=== PATIENT | male | born 1965 | race Caucasian/White ===

== ENCOUNTER 2017-07-04 19:34 | Emergency (ER) | payer MEDICARE, OTHER ==
[~2017-07-04] VITALS: Ht 175.3 cm; Wt 66.6 kg
[~2017-07-04 19:34] MED LIST: ACET325S8 PO; CARB200C2 PO; CARB200T16 PO; CEPH500C3 PO; DILA100C PO; FERRF325 PO; LEVE500 PO; LEVE750T8 PO; MACR100C PO; PROM1SUP12 PR; [UNRECOGNIZED DRUG - OTHER] PO
[2017-07-04 19:43] VITALS: BP 135/82; PULSE 94; RESP 18; TEMP 100.1; O2SAT 98
[2017-07-04] MEDS ORDERED: SODIUM CHLOR 0.9% 1000 ML INJ 1,000 ML IV ONE ×2 (19:52→22:00)
[2017-07-04] MEDS ORDERED: SODIUM CHLORIDE 0.9% FLUSH 10 ML FLUSH IVF PRN (20:00)
[2017-07-04] MEDS ORDERED: ACETAMINOPHEN 325 MG TAB PO ONE (20:00)
--- NOTE | 2017-07-04 20:07 | PD ---
HPI Chief Complaint: Seizure Time Seen by Provider: 19:51 Travel History International Travel<30 days: No Contact w/Intl Traveler<30days: No Traveled to known affect area: No History of Present Illness HPI 51-year-old male presents emergency department with witnessed seizure while eating supper. He was lowered to the ground by family members and protected without obvious injury. Patient denies any pain and he is alert and oriented 3 now. He is normally taking Keppra 500 mg twice daily. Patient is noted to have a fever of 100.1 orally. He denies recent illness or flulike symptoms. He denies fever, cough, chills, urinary symptoms, nausea, vomiting, or diarrhea. The patient has no known drug allergies. PFSH Past Medical History Developmental Delay: Yes (mild mental retardation) Neurologic: Yes Migraines: Yes Seizures: Yes (epilepsy, GRAND MAL SEIZURES) Tetanus Vaccination: < 5 Years Past Surgical History Surgical History: No Previous Surgery Social History Alcohol Use: No Tobacco Use: No Substance Use: No Allergies-Medications (Allergen,Severity, Reaction): Coded Allergies: No Known Allergies (Verified Allergy, Unknown, 07/04/17) Reported Meds & Prescriptions Reported Meds & Active Scripts Active Mapap Extra Strength (Acetaminophen) 500 Mg Tab 500 Mg PO Q6HR PRN Ibuprofen 600 Mg Tab 600 Mg PO Q8H PRN Tamiflu (Oseltamivir Phosphate) 75 Mg Cap 75 Mg PO BID 5 Days Keflex (Cephalexin) 500 Mg Cap 500 Mg PO Q8H 7 Days Review of Systems Except as stated in HPI: all other systems reviewed are Neg General / Constitutional: Positive: Fever (Noted in triage) Eyes: No: Visual changes HENT: No: Headaches, Vertigo, Lightheadedness, Sore Throat, Rhinitis, Rhinorrhea, Congestion, Nosebleed, Neck Stiffness, Neck Pain, Dental Difficulties, Earache Cardiovascular: No: Chest Pain or Discomfort Respiratory: No: Cough, Shortness of Breath, Wheezing Gastrointestinal: No: Nausea, Vomiting, Diarrhea, Abdominal Pain Genitourinary: No: Urgency, Frequency, Dysuria Musculoskeletal: No: Myalgias, Pain Skin: No Rash Neurologic: Positive: Seizures, No: Weakness Psychiatric: No: Depression Endocrine: No: Polydipsia Hematologic/Lymphatic: No: Easy Bruising Physical Exam Narrative GENERAL: Patient appears in no acute distress. He appears postictal but is arousable and answers questions appropriately SKIN: Warm and dry. Normal color. Normal turgor. No sign of trauma. HEAD: Atraumatic. Normocephalic. Nontender. EYES: Pupils equal and round. No scleral icterus. No injection or drainage. ENT: No nasal bleeding or discharge. Mucous membranes pink and moist. Pharynx is clear. Airway is patent NECK: Trachea midline. Supple and nontender CARDIOVASCULAR: Regular rate and rhythm. RESPIRATORY: No accessory muscle use. Clear to auscultation. Breath sounds equal bilaterally. GASTROINTESTINAL: Abdomen soft, non-tender, nondistended. Hepatic and splenic margins not palpable. MUSCULOSKELETAL: Extremities without clubbing, cyanosis, or edema. No obvious deformities. NEUROLOGICAL: Awake and alert. No obvious cranial nerve deficits. Motor grossly within normal limits. Five out of 5 muscle strength in the arms and legs. Normal speech. PSYCHIATRIC: Appropriate mood and affect; insight and judgment normal. Data Data Last Documented VS Vital Signs Date Time Temp Pulse Resp B/P (MAP) Pulse Ox O2 Delivery O2 Flow Rate FiO2 07/04/17 21:59 99.9 85 16 123/90 (101) 97 Room Air Orders Orders Complete Blood Count With Diff (07/04/17 19:52) Basic Metabolic Panel (Bmp) (07/04/17 19:52) Blood Glucose (07/04/17 19:52) Ecg Monitoring (07/04/17 19:52) Iv Access Insert/Monitor (07/04/17 19:52) Oximetry (07/04/17 19:52) Cath For Specimen (07/04/17 19:52) Comprehensive Metabolic Panel (07/04/17 19:52) Sodium Chlor 0.9% 1000 Ml Inj (Ns 1000 M (07/04/17 19:52) Sodium Chloride 0.9% Flush (Ns Flush) (07/04/17 20:00) Urinalysis - C+S If Indicated (07/04/17 19:52) Lactic Acid (07/04/17 19:52) Blood Culture (07/04/17 19:52) Acetaminophen (Tylenol) (07/04/17 20:00) Influenzae A/B Antigen (07/04/17 20:03) Levetiracetam Inj (Keppra Inj) (07/04/17 20:15) Chest, Single Ap (07/04/17 20:19) Potassium Chloride (Kcl) (07/04/17 22:00) Oseltamivir (Tamiflu) (07/04/17 22:00) Sodium Chlor 0.9% 1000 Ml Inj (Ns 1000 M (07/04/17 22:00) Ibuprofen (Motrin) (07/04/17 22:15) Urine Culture (07/04/17 21:55) Ceftriaxone Inj (Rocephin Inj) (07/04/17 22:30) Labs Laboratory Tests Test 07/04/17 19:55 07/04/17 21:55 White Blood Count 3.7 TH/MM3 Red Blood Count 3.88 MIL/MM3 Hemoglobin 13.0 GM/DL Hematocrit 36.2 % Mean Corpuscular Volume 93.3 FL Mean Corpuscular Hemoglobin 33.4 PG Mean Corpuscular Hemoglobin Concent 35.8 % Red Cell Distribution Width 12.7 % Platelet Count 128 TH/MM3 Mean Platelet Volume 7.0 FL Neutrophils (%) (Auto) 63.0 % Lymphocytes (%) (Auto) 19.0 % Monocytes (%) (Auto) 16.7 % Eosinophils (%) (Auto) 0.8 % Basophils (%) (Auto) 0.5 % Neutrophils # (Auto) 2.4 TH/MM3 Lymphocytes # (Auto) 0.7 TH/MM3 Monocytes # (Auto) 0.6 TH/MM3 Eosinophils # (Auto) 0.0 TH/MM3 Basophils # (Auto) 0.0 TH/MM3 CBC Comment DIFF FINAL Differential Comment Blood Urea Nitrogen 12 MG/DL Creatinine 0.84 MG/DL Random Glucose 101 MG/DL Total Protein 7.2 GM/DL Albumin 3.8 GM/DL Calcium Level 8.7 MG/DL Alkaline Phosphatase 102 U/L Aspartate Amino Transf (AST/SGOT) 19 U/L Alanine Aminotransferase (ALT/SGPT) 21 U/L Total Bilirubin 0.3 MG/DL Sodium Level 139 MEQ/L Potassium Level 3.2 MEQ/L Chloride Level 100 MEQ/L Carbon Dioxide Level 31.5 MEQ/L Anion Gap 8 MEQ/L Estimat Glomerular Filtration Rate 96 ML/MIN Lactic Acid Level 2.0 mmol/L Urine Color YELLOW Urine Turbidity CLEAR Urine pH 6.5 Urine Specific [place] 1.011 Urine Protein NEG mg/dL Urine Glucose (UA) NEG mg/dL Urine Ketones NEG mg/dL Urine Occult Blood NEG Urine Nitrite NEG Urine Bilirubin NEG Urine Urobilinogen LESS THAN 2.0 MG/DL Urine Leukocyte Esterase TRACE Urine WBC 2 /hpf Urine Squamous Epithelial Cells <1 /hpf Urine Bacteria RARE /hpf Urine Mucus FEW /lpf Microscopic Urinalysis Comment CATH-CULTURE IND MDM Medical Decision Making Medical Screen Exam Complete: Yes Emergency Medical Condition: Yes Medical Record Reviewed: Yes Differential Diagnosis Seizure. Fever. Flulike symptoms. UTI Narrative Course Patient appears medically stable at time of exam. Labs ordered including CBC, CMP, lactic acid, blood cultures 2, rapid influenza and urinalysis. Chest x-ray was ordered. IV access is obtained the patient was given 1000 mL normal saline bolus. Patient is given 1000 mg Keppra IV. Patient is given 650 mg acetaminophen p.o. CBC is remarkable for white blood cell count of 3.7, hematocrit is 36.2 with a hemoglobin of 13. Platelet count is 128. Monocytes are elevated at 16.7%. Lactic acid is elevated at 2.0 Chest x-ray is unremarkable for acute process per radiologist Rapid influenza is positive for influenza B. Urinalysis is suggestive of urinary tract infection, and urine culture is placed. Patient is given ibuprofen 600 mg p.o., Tamiflu 75 mg p.o. And 1000 mg Rocephin IV. Patient will be continued on Keflex 500 mg 3 times daily for 7 days. Patient also continued on Tamiflu 75 mg twice daily 5 days. Patient also given ibuprofen 600 mg every 8 hours as needed #30. Patient also extension Mapap Effexor strength 500 mg 1 tab every 6 hours as needed fever #60. Patient is to rest, push fluids, and follow-up if symptoms worsen. Patient is to continue his Keppra as previously prescribed. Diagnosis Primary Impression: Influenza B Additional Impressions: Urinary tract infection Qualified Codes: N30.00 - Acute cystitis without hematuria Fever Qualified Codes: R50.9 - Fever, unspecified Breakthrough seizure Referrals: Primary Care Physician Patient Instructions: Acetaminophen (By mouth), General Instructions, Ibuprofen (By mouth), Influenza (DC) Additional Instructions: Rapid influenza is positive for influenza B. Urinalysis is suggestive of urinary tract infection, and urine culture is placed. Patient is given ibuprofen 600 mg p.o., Tamiflu 75 mg p.o. And 1000 mg Rocephin IV. Patient will be continued on Keflex 500 mg 3 times daily for 7 days. Patient also continued on Tamiflu 75 mg twice daily 5 days. Patient also given ibuprofen 600 mg every 8 hours as needed #30. Patient also extension Mapap Effexor strength 500 mg 1 tab every 6 hours as needed fever #60. Patient is to rest, push fluids, and follow-up if symptoms worsen. Patient is to continue his Keppra as previously prescribed. Med/Other Pt SpecificInfo: Prescription(s) given Scripts Acetaminophen (Mapap Extra Strength) 500 Mg Tab 500 MG PO Q6HR Y for FEVER, #60 TAB 0 Refills Prov: Ashley Siu MD 07/04/17 Ibuprofen (Ibuprofen) 600 Mg Tab 600 MG PO Q8H Y for PAIN, #30 TAB 0 Refills Prov: Ashley Siu MD 07/04/17 Oseltamivir (Tamiflu) 75 Mg Cap 75 MG PO BID for Mgmt Viral Infection for 5 Days, #10 CAP 0 Refills Prov: Ashley Siu MD 07/04/17 Cephalexin (Keflex) 500 Mg Cap 500 MG PO Q8H for Infection for 7 Days, #21 CAP 0 Refills Prov: Ashley Siu MD 07/04/17 Disposition: 01 DISCHARGE HOME Condition: Stable Jalil Rico Jul 04, 2017 20:07
[2017-07-04] MEDS ORDERED: levETIRAcetam INJ 100 ML IV ONE (20:15)
[2017-07-04 20:33] VITALS: PULSE 89; RESP 14; O2SAT 99
[2017-07-04 20:54] LABS: AUTOMATED NEUTROPHIL # 2.4 TH/MM3 (1.8-7.7); BASOPHIL % 0.5 % (0.0-2.0); EOSINOPHIL % 0.8 % (0.0-4.0); HEMATOCRIT 36.2 % (39.0-51.0); LYMPHOCYTE # 0.7 TH/MM3 (1.0-4.8); MEAN CELL VOLUME 93.3 FL (80.0-100.0); MEAN CORPUSCULAR HEMOGLOBIN 33.4 PG (27.0-34.0); MEAN CORPUSCULAR HGB CONC 35.8 % (32.0-36.0); MONO % 16.7 % (0.0-8.0); MONOCYTE # 0.6 TH/MM3 (0-0.9); PLATELET COUNT 128 TH/MM3 (150-450); RED BLOOD COUNT 3.88 MIL/MM3 (4.50-5.90); RED CELL DISTRIBUTION WIDTH 12.7 % (11.6-17.2); WHITE BLOOD COUNT 3.7 TH/MM3 (4.0-11.0)
--- NOTE | 2017-07-04 21:01 | RADRPT ---
EXAM DATE/TIME: 07/04/2017 20:52 [facility] COMPARISON: No previous studies available for comparison. INDICATIONS : Fever. MEDICAL HISTORY : None. SURGICAL HISTORY : None. ENCOUNTER: Initial ACUITY: 1 day PAIN SCORE: 0/10 LOCATION: Bilateral chest FINDINGS: A single view of the chest demonstrates the lungs to be symmetrically aerated without evidence of mas s, infiltrate or effusion. The cardiomediastinal contours are unremarkable. Osseous structures are intact. CONCLUSION: Normal examination for a patient of this age. Gavin Quintanilla MD on July 04, 2017 at 20:59 Board Certified Radiologist. This report was verified electronically.
[2017-07-04 21:15] LABS: ALBUMIN 3.8 GM/DL (3.4-5.0); AST (GOT) 19 U/L (15-37); BICARBONATE 31.5 MEQ/L (21.0-32.0); BLOOD UREA NITROGEN 12 MG/DL (7-18); CALCIUM 8.7 MG/DL (8.5-10.1); CHLORIDE 100 MEQ/L (98-107); CREATININE 0.84 MG/DL (0.60-1.30); GLOMERULAR FILTRATION RATE 96 ML/MIN (>89); GLUCOSE,RANDOM 101 MG/DL (74-106); SODIUM (NA) 139 MEQ/L (136-145)
[2017-07-04 21:18] LABS: ALKALINE PHOSPHATASE 102 U/L (45-117); ALT (GPT) 21 U/L (12-78); TOTAL BILIRUBIN ADULT 0.3 MG/DL (0.2-1.0); TOTAL PROTEIN 7.2 GM/DL (6.4-8.2)
[2017-07-04 21:59] VITALS: BP 123/90; PULSE 85; RESP 16; TEMP 99.9; O2SAT 97
[2017-07-04] MEDS ORDERED: OSELTAMIVIR PHOSPHATE 75 MG CAP PO ONE (22:00)
[2017-07-04] MEDS ORDERED: POTASSIUM CHLORIDE 20 MEQ CONTROLLED RELEASE TAB PO ONE (22:00)
[2017-07-04] MEDS ORDERED: IBUPROFEN 600 MG TAB PO ONE (22:15)
[2017-07-04 22:19] LABS: BACTERIA, URINE RARE /hpf; BILIRUBIN, URINE NEG (NEG); BLOOD, URINE NEG (NEG); GLUCOSE,URINE NEG (NEG); KETONE, URINE NEG (NEG); MUCUS URINE FEW /lpf (OCC); NITRITE,URINE NEG (NEG); PH, URINE 6.5 (5.0-8.5); SQUAMOUS EPITHELIAL CELL URINE <1 /hpf (0-5); URINE COLOR YELLOW (YELLW/STRAW); URINE LEUKOCYTE ESTERASE TRACE (NEG)
[2017-07-04] MEDS ORDERED: IBUP-232 PO (22:25)
[2017-07-04] MEDS ORDERED: CEPH-460 PO (22:25)
[2017-07-04] MEDS ORDERED: OSEL75 PO (22:25)
[2017-07-04] MEDS ORDERED: MAPA500T13 PO (22:25)
[2017-07-04] MEDS ORDERED: cefTRIAXone INJ 1,000 MG in SODIUM CHLORIDE 0.9% INJ 100 ML IV ONE (22:30)
[2017-07-04] MEDS ORDERED: TEGR200T PO (22:45)
[2017-07-04] MEDS ORDERED: KEPP10002 PO ×2 (22:45)
[2017-07-04] MEDS ORDERED: TYLE325T PO (22:45)
[2017-07-04] MEDS ORDERED: HEMOCAP PO (22:45)
[2017-07-04] MEDS ORDERED: PHEN200C3 PO (22:45)
== END 2017-07-04 23:50 | disposition home or self-care (01) ==
LOC: NEPC 19:34
DX: J10.1 Influenza due to other identified influenza virus with other respiratory manifestations (principal); N39.0 Urinary tract infection, site not specified; G40.909 Epilepsy, unspecified, not intractable, without status epilepticus; F70 Mild intellectual disabilities
CPT/HCPCS: 71045; 80053; 81001; 83605; 85025; 87040; 87086; 87804; 96361; 96365; 96367; 99284; J0696; J1953; J7030